=== PATIENT | male | born 1950 | race Caucasian/White ===

== ENCOUNTER 2020-08-25 17:20 | Observation (INO) ==
[2020-08-25] MEDS ORDERED: Naloxone 0.4 MG/ML INJ IVP PRN (18:09)
[2020-08-25] MEDS ORDERED: Ondansetron 4 MG/2 ML VIAL IVP PRN (18:09)
[2020-08-25 18:13] LABS: Acetaminophen < 10 mcg/mL (10-20); Salicylate < 2.5 mg/dL (15.0-30.0)
[2020-08-25] MEDS ORDERED: Melatonin 3 MG TABLET PO PRN (18:42)
[2020-08-25] MEDS ORDERED: Isosorbide MONOnitrate (24 HR) 30 MG TAB.ER.24H PO ONE (18:43)
[2020-08-25 21:00] LABS: Troponin I < 0.03 ng/mL (< 0.04)
[2020-08-25] MEDS: Budesonide/Formoterol 160/4.5 1 PUFF INH IH SCH (21:49)
[2020-08-26 01:09] LABS: Basophils # 0.1 K/mcL (0.0-0.2); Basophils % 0.7 %; Eosinophils # 0.2 K/mcL (0.0-0.6); Eosinophils % 3.2 %; Hematocrit 31.6 % (37.5-50.1); Hemoglobin 10.6 g/dL (12.9-16.9); Immature Granulocytes % 0.1 % (0-4); Lymphocytes # 1.8 K/mcL (0.6-4.6); Lymphocytes % 24.1 %; Mean Corpuscular HGB Conc 33.5 g/dL (31.6-35.5); Mean Corpuscular Hemoglobin 32.5 pg (28.0-33.3); Mean Corpuscular Volume 96.9 fL (83.0-100.0); Mean Platelet Volume 9.4 fL (9.4-12.4); Monocytes # 0.5 K/mcL (0.0-1.3); Monocytes % 6.8 %; Neutrophils # 4.8 K/mcL (1.6-8.9); Platelet Count 256 K/mcL (140-400); Red Blood Count 3.26 M/mcL (4.19-5.50); Red Cell Distribution Width 14.6 % (11.5-14.5); Segmented Neutrophils % 65.1 %; White Blood Count 7.4 K/mcL (4.3-11.1)
[2020-08-26 01:12] LABS: Prothrombin Time 11.1 Seconds (9.4-12.1)
[2020-08-26 01:32] LABS: Albumin 2.9 g/dL (3.5-5.7); Albumin/Globulin Ratio 1.1 (1.1-2.2); Bilirubin,Total 0.3 mg/dL (0.3-1.0); Calcium 8.1 mg/dL (8.6-10.3); Chol/HDL Ratio 2.9 (0-4.9); Globulin 2.7 g/dL (2.4-3.5); Magnesium 1.9 mg/dL (1.6-2.6); Phosphorous 3.2 mg/dL (2.7-4.5); Potassium 3.8 mEq/L (3.5-5.1); Total Protein 5.6 g/dL (6.4-8.9)
[2020-08-26 01:41] LABS: Thyroid Stimulating Hormone 18.856 mcIU/mL (0.340-5.600)
[2020-08-26 01:59] LABS: Estimated Average Glucose 134 mg/dl
[2020-08-26] MEDS: Budesonide/Formoterol 160/4.5 1 PUFF INH IH SCH (07:30)
[2020-08-26] MEDS ORDERED: Aspirin Enteric Coated 81 MG Tablet PO SCH (09:00)
[2020-08-26] MEDS ORDERED: Nicotine 21 MG PATCH.TD24 TD SCH ×2 (09:00→14:45)
[2020-08-26] MEDS ORDERED: Regadenoson 0.4 MG/5 ML SYRINGE IVP ONE (09:17)
[2020-08-26 09:55] LABS: Triiodothyronine (T3) Total 0.57 ng/mL (0.87-1.78)
[2020-08-26 10:25] LABS: Triiodothyronine (T3) Total 0.71 ng/mL (0.87-1.78)
[2020-08-26] MEDS ORDERED: amLODIPine 5 MG TABLET PO SCH (10:45)
[2020-08-26] MEDS ORDERED: Venlafaxine XR (24 HR) 75 MG CAP.ER.24H PO SCH (10:45)
[2020-08-26] MEDS ORDERED: allopurinoL 100 MG TABLET PO SCH (10:45)
[2020-08-26] MEDS ORDERED: Isosorbide MONOnitrate (24 HR) 30 MG TAB.ER.24H PO SCH (10:45)
[2020-08-26] MEDS ORDERED: ARIPiprazole 5 MG TABLET PO SCH (10:45)
[2020-08-26 15:33] LABS: Adenovirus Not Detected (Not Detect); Bordetella Pertussis Not Detected (Not Detect); Chlamydophila pneumoniae Not Detected (Not Detect); Coronavirus 229E Not Detected (Not Detect); Coronavirus HKU1 Not Detected (Not Detect); Coronavirus NL63 Not Detected (Not Detect); Coronavirus OC43 Not Detected (Not Detect); Human Metapneumovirus Not Detected (Not Detect); Human Rhinovirus/Enterovirus Not Detected (Not Detect); Influenza A Subtype 2009 H1 Not Detected (Not Detect); Influenza B Not Detected (Not Detect); Mycoplasma pneumoniae Not Detected (Not Detect); Parainfluenza Virus 1 Not Detected (Not Detect); Parainfluenza Virus 2 Not Detected (Not Detect); Parainfluenza Virus 3 Not Detected (Not Detect); Parainfluenza Virus 4 Not Detected (Not Detect); Respiratory Syncytial Virus Not Detected (Not Detect); SARS-CoV-2 Not Detected (Not Detect)
[2020-08-26 16:33] VITALS: BP 155/83
[2020-08-26] MEDS ORDERED: Mirtazapine 15 MG TABLET PO SCH (21:00)
== END 2020-08-26 18:25 ==
LOC: EMEROOARM 17:20 → 3BNU 17:20 → SUATTDRO 20:32 → 3BNU 21:01
PROVIDERS: ADMIT Internal Medicine; ATTEND Internal Medicine

== ENCOUNTER 2021-11-02 13:51 | Observation (INO) ==
[2021-11-02 14:32] LABS: Basophils % 0.3 %; Eosinophils # 0.1 K/mcL (0.0-0.6); Eosinophils % 0.7 %; Hematocrit 33.6 % (37.5-50.1); Hemoglobin 11.3 g/dL (12.9-16.9); Immature Granulocytes % 0.4 % (0-4); Lymphocytes # 1.1 K/mcL (0.6-4.6); Lymphocytes % 9.1 %; Mean Corpuscular HGB Conc 33.6 g/dL (31.6-35.5); Mean Corpuscular Hemoglobin 30.7 pg (28.0-33.3); Mean Corpuscular Volume 91.3 fL (83.0-100.0); Mean Platelet Volume 9.2 fL (9.4-12.4); Monocytes # 0.8 K/mcL (0.0-1.3); Monocytes % 6.2 %; Neutrophils # 10.1 K/mcL (1.6-8.9); Platelet Count 320 K/mcL (140-400); Red Blood Count 3.68 M/mcL (4.19-5.50); Red Cell Distribution Width 15.7 % (11.5-14.5); Segmented Neutrophils % 83.3 %; White Blood Count 12.2 K/mcL (4.3-11.1)
[2021-11-02 14:48] LABS: Calcium 8.8 mg/dL (8.6-10.3); Potassium 4.6 mEq/L (3.5-5.1); Prothrombin Time 11.5 Seconds (9.4-12.1)
[2021-11-02 14:58] LABS: Troponin I 0.04 ng/mL (< 0.04)
[2021-11-02] MEDS ORDERED: Albuterol 2.5 MG/3 ML NEBULIZER IH ONE (16:08)
[2021-11-02] MEDS ORDERED: Perflutren Lipid Microsphere 1.3 ML in 0.9 % Sodium Chloride 8.7 ML IVP PRN (16:43)
[2021-11-02] MEDS ORDERED: Ondansetron 4 MG/2 ML VIAL IVP PRN (16:44)
[2021-11-02] MEDS ORDERED: Naloxone 0.4 MG/ML INJ IVP PRN (16:44)
[2021-11-02] MEDS ORDERED: Melatonin 3 MG TABLET PO PRN (16:44)
[2021-11-02] MEDS: *HR* Heparin 5,000 UNIT/ML VIAL SQ SCH (18:28)
[2021-11-02 19:05] LABS: Adenovirus Not Detected (Not Detect); Bordetella Pertussis Not Detected (Not Detect); Chlamydophila pneumoniae Not Detected (Not Detect); Coronavirus 229E Not Detected (Not Detect); Coronavirus HKU1 Not Detected (Not Detect); Coronavirus NL63 Not Detected (Not Detect); Coronavirus OC43 Not Detected (Not Detect); Human Metapneumovirus Not Detected (Not Detect); Human Rhinovirus/Enterovirus Not Detected (Not Detect); Influenza A Subtype 2009 H1 Not Detected (Not Detect); Influenza B Not Detected (Not Detect); Mycoplasma pneumoniae Not Detected (Not Detect); Parainfluenza Virus 1 Not Detected (Not Detect); Parainfluenza Virus 2 Not Detected (Not Detect); Parainfluenza Virus 3 Not Detected (Not Detect); Parainfluenza Virus 4 Not Detected (Not Detect); Respiratory Syncytial Virus Not Detected (Not Detect); SARS-CoV-2 Not Detected (Not Detect)
[2021-11-02 20:00] LABS: Amphetamine Screen,Urine Negative ng/mL (Cutoff=1000); Barbiturate Screen,Urine Negative ng/mL (Cutoff=200); Benzodiazepines Screen,Urine Negative ng/mL (Cutoff=200); Cannabinoid Screen,Urine Positive ng/mL (Cutoff = 50); Cocaine Screen,Urine Negative ng/mL (Cutoff= 300); Opiate Screen,Urine Negative ng/mL (Cutoff=300); Phencyclidine Screen,Urine Negative ng/mL (Cutoff=25)
[2021-11-02] MEDS: Ipratropium/Albuterol Neb 3 ML IH PRN (20:45)
[2021-11-02] MEDS: Budesonide/Formoterol 160/4.5 1 PUFF INH IH SCH (20:45)
[2021-11-02] MEDS ORDERED: Morphine Sulfate 2 MG/ML SYRINGE IVP ONE (21:39)
[2021-11-03] MEDS: Morphine Sulfate 2 MG/ML SYRINGE IVP PRN ×4 (02:10→17:17)
[2021-11-03 02:48] LABS: Basophils % 0.3 %; Eosinophils # 0.1 K/mcL (0.0-0.6); Eosinophils % 0.7 %; Hematocrit 33.3 % (37.5-50.1); Hemoglobin 11.2 g/dL (12.9-16.9); Immature Granulocytes % 0.3 % (0-4); Lymphocytes # 1.1 K/mcL (0.6-4.6); Lymphocytes % 10.4 %; Mean Corpuscular HGB Conc 33.6 g/dL (31.6-35.5); Mean Corpuscular Hemoglobin 30.9 pg (28.0-33.3); Mean Platelet Volume 9.5 fL (9.4-12.4); Monocytes # 0.8 K/mcL (0.0-1.3); Monocytes % 7.1 %; Neutrophils # 8.7 K/mcL (1.6-8.9); Platelet Count 294 K/mcL (140-400); Red Blood Count 3.62 M/mcL (4.19-5.50); Red Cell Distribution Width 15.6 % (11.5-14.5); Segmented Neutrophils % 81.2 %; White Blood Count 10.7 K/mcL (4.3-11.1)
[2021-11-03 03:06] LABS: BUN/Creatinine Ratio 25 (6-26); Blood Urea Nitrogen 33 mg/dL (8-23); Calcium 8.8 mg/dL (8.6-10.3); Carbon Dioxide 24 mEq/L (23-29); Chloride 101 mEq/L (98-107); Chol/HDL Ratio 2.4 (0-4.9); Cholesterol 111 mg/dL (< 200); Glucose 114 mg/dL (70-105); HDL Cholesterol 47 mg/dL (40-59); LDL Cholesterol,Calculated 49 mg/dL (< 100); Magnesium 1.9 mg/dL (1.6-2.6); Osmolality,Calculated 280 (280-300); Potassium 4.3 mEq/L (3.5-5.1); Sodium 131 mEq/L (136-145); Triglycerides 75 mg/dL (< 150); eGFR For African Americans > 60 (> 60); eGFR For Non-African Americans 53 (> 60)
[2021-11-03 03:18] LABS: Estimated Average Glucose 143 mg/dl; Hemoglobin A1C 6.6 %
[2021-11-03] MEDS ORDERED: Nitroglycerin 0.4 MG TAB.SUBL SL ONE (03:25)
[2021-11-03] MEDS: *HR* Heparin 5,000 UNIT/ML VIAL SQ SCH ×2 (06:08→16:51)
[2021-11-03] MEDS: Aspirin Enteric Coated 81 MG Tablet PO SCH (09:47)
[2021-11-03] MEDS ORDERED: Isovue-370 500 ML BOTTLE IVP ONE (09:56)
[2021-11-03] MEDS: Budesonide/Formoterol 160/4.5 1 PUFF INH IH SCH ×2 (09:58→20:05)
[2021-11-03] MEDS ORDERED: 0.9 % Sodium Chloride 1,000 ML IVC SCH (10:00)
[2021-11-03] MEDS ORDERED: clonazePAM 0.5 MG TABLET PO PRN (10:05)
[2021-11-03] MEDS: cefTRIAXone 1,000 MG in Water for inj. (sterile) 10 ML IVP SCH (15:46)
[2021-11-03] MEDS: Azithromycin 250 MG TABLET PO SCH (15:46)
[2021-11-03] MEDS: Ipratropium/Albuterol Neb 3 ML IH PRN (20:05)
[2021-11-03] MEDS: Melatonin 3 MG TABLET PO SCH (20:12)
[2021-11-03] MEDS: Sacubitril/Valsartan 24/26 MG 1 TABLET PO SCH (20:12)
[2021-11-03] MEDS: Mirtazapine 15 MG TABLET PO SCH (20:13)
[2021-11-03] MEDS ORDERED: NON-FORMULARY MEDICATION 1 EACH EACH (Fluticasone Propion/Salmeterol [Fluticasone-Salmeter IH SCH (21:00)
[2021-11-04] MEDS: *HR* Heparin 5,000 UNIT/ML VIAL SQ SCH ×2 (05:33→16:26)
[2021-11-04] MEDS: cefTRIAXone 1,000 MG in Water for inj. (sterile) 10 ML IVP SCH (09:27)
[2021-11-04] MEDS: ARIPiprazole 5 MG TABLET PO SCH (09:28)
[2021-11-04] MEDS: Azithromycin 250 MG TABLET PO SCH (09:28)
[2021-11-04] MEDS: Isosorbide MONOnitrate (24 HR) 60 MG TAB.ER.24H PO SCH (09:28)
[2021-11-04] MEDS: Aspirin Enteric Coated 81 MG Tablet PO SCH (09:28)
[2021-11-04] MEDS: allopurinoL 300 MG TABLET PO SCH (09:28)
[2021-11-04] MEDS: Venlafaxine XR (24 HR) 150 MG CAP.ER.24H PO SCH (09:28)
[2021-11-04] MEDS: Sacubitril/Valsartan 24/26 MG 1 TABLET PO SCH ×2 (09:29→20:36)
[2021-11-04] MEDS: Tiotropium 10 INH DOSE IH SCH (11:31)
[2021-11-04] MEDS: Budesonide/Formoterol 160/4.5 1 PUFF INH IH SCH ×2 (11:31→20:00)
[2021-11-04] MEDS: Ipratropium/Albuterol Neb 3 ML IH PRN ×2 (12:25→20:00)
[2021-11-04] MEDS ORDERED: *HR* OxyCODONE/APAP 5/325 TABLET PO ONE (13:43)
[2021-11-04 14:10] LABS: Bilirubin,Urine Negative (Negative); Blood,Urine Moderate (Negative); Clarity,Urine Clear (Clear); Color,Urine Light-Yellow (Yellow); Glucose,Urine (UA) Normal (Normal); Ketones,Urine 10 mg/dL (Negative); Leukocyte Esterase,Urine Negative (Negative); Nitrite,Urine Negative (Negative); Protein,Urine 200 mg/dL (Neg-Trace); Specific Gravity,Urine 1.023 (1.010-1.025); Urobilinogen,Urine Normal (Normal); WBC,Urine 0-3 per hpf (0-3)
[2021-11-04] MEDS: Mirtazapine 15 MG TABLET PO SCH (20:37)
[2021-11-04] MEDS: Melatonin 3 MG TABLET PO SCH (20:37)
[2021-11-04 20:45] LABS: Adenovirus Not Detected (Not Detect); Bordetella Pertussis Not Detected (Not Detect); Chlamydophila pneumoniae Not Detected (Not Detect); Coronavirus 229E Not Detected (Not Detect); Coronavirus HKU1 Not Detected (Not Detect); Coronavirus NL63 Not Detected (Not Detect); Coronavirus OC43 Not Detected (Not Detect); Human Metapneumovirus Not Detected (Not Detect); Human Rhinovirus/Enterovirus Not Detected (Not Detect); Influenza A Subtype 2009 H1 Not Detected (Not Detect); Influenza B Not Detected (Not Detect); Mycoplasma pneumoniae Not Detected (Not Detect); Parainfluenza Virus 1 Not Detected (Not Detect); Parainfluenza Virus 2 Not Detected (Not Detect); Parainfluenza Virus 3 Not Detected (Not Detect); Parainfluenza Virus 4 Not Detected (Not Detect); Respiratory Syncytial Virus Not Detected (Not Detect); SARS-CoV-2 Not Detected (Not Detect)
[2021-11-04] MEDS ORDERED: *HR* Heparin 5,000 UNIT/ML VIAL IVP PRN ×2 (23:29)
[2021-11-04] MEDS ORDERED: Heparin 25,000 UNIT/250 ML 25,000 UNIT/250 ML IV.SOLN IVC SCH (23:30)
[2021-11-05 00:50] LABS: Hemoglobin 11.2 g/dL (12.9-16.9); Mean Corpuscular HGB Conc 33.9 g/dL (31.6-35.5); Mean Corpuscular Hemoglobin 30.5 pg (28.0-33.3); Mean Corpuscular Volume 89.9 fL (83.0-100.0); Mean Platelet Volume 9.3 fL (9.4-12.4); Platelet Count 296 K/mcL (140-400); Red Blood Count 3.67 M/mcL (4.19-5.50); Red Cell Distribution Width 15.2 % (11.5-14.5)
[2021-11-05 00:53] LABS: Heparin anti-factor XA UFH < 0.04 IU/mL (0.30-0.70)
[2021-11-05 00:54] LABS: INR 0.9; Prothrombin Time 10.3 Seconds (9.4-12.1)
[2021-11-05] MEDS: Morphine Sulfate 2 MG/ML SYRINGE IVP PRN ×3 (02:35→19:42)
[2021-11-05] MEDS: Venlafaxine XR (24 HR) 150 MG CAP.ER.24H PO SCH (09:16)
[2021-11-05] MEDS: ARIPiprazole 5 MG TABLET PO SCH (09:16)
[2021-11-05] MEDS: Isosorbide MONOnitrate (24 HR) 60 MG TAB.ER.24H PO SCH (09:16)
[2021-11-05] MEDS: Azithromycin 250 MG TABLET PO SCH ×2 (09:16→09:36)
[2021-11-05] MEDS: Aspirin Enteric Coated 81 MG Tablet PO SCH (09:16)
[2021-11-05] MEDS: Sacubitril/Valsartan 24/26 MG 1 TABLET PO SCH ×2 (09:16→19:31)
[2021-11-05] MEDS: allopurinoL 300 MG TABLET PO SCH (09:16)
[2021-11-05] MEDS: Budesonide/Formoterol 160/4.5 1 PUFF INH IH SCH ×2 (09:27→19:54)
[2021-11-05] MEDS: Tiotropium 10 INH DOSE IH SCH (09:27)
[2021-11-05] MEDS: Apixaban 5 MG TABLET PO SCH ×2 (14:44→19:31)
[2021-11-05] MEDS: Ipratropium/Albuterol Neb 3 ML IH PRN (14:49)
[2021-11-05] MEDS: Amoxicillin/Clavulanate 500 MG TABLET PO SCH (16:26)
[2021-11-05 18:56] LABS: Alanine Aminotransferase 12 Units/L (7-52); Albumin 3.3 g/dL (3.5-5.7); Albumin/Globulin Ratio 1.1 (1.1-2.2); Alkaline Phosphatase 66 Units/L (34-104); Aspartate Amino Transferase 14 Units/L (13-39); BUN/Creatinine Ratio 26 (6-26); Bilirubin,Total 0.3 mg/dL (0.3-1.0); Blood Urea Nitrogen 33 mg/dL (8-23); Calcium 8.8 mg/dL (8.6-10.3); Carbon Dioxide 28 mEq/L (23-29); Chloride 100 mEq/L (98-107); Glucose 122 mg/dL (70-105); Magnesium 1.7 mg/dL (1.6-2.6); Osmolality,Calculated 285 (280-300); Phosphorous 3.3 mg/dL (2.7-4.5); Potassium 4.5 mEq/L (3.5-5.1); Sodium 133 mEq/L (136-145); Total Protein 6.3 g/dL (6.4-8.9); eGFR For African Americans > 60 (> 60); eGFR For Non-African Americans 55 (> 60)
[2021-11-05] MEDS: Melatonin 3 MG TABLET PO SCH (19:31)
[2021-11-05] MEDS: Mirtazapine 15 MG TABLET PO SCH (19:31)
[2021-11-06 03:03] VITALS: BP 139/84; PULSE 61; TEMP 97.9; O2SAT 96
[2021-11-06] MEDS: Morphine Sulfate 2 MG/ML SYRINGE IVP PRN ×2 (03:07→08:52)
[2021-11-06] MEDS: ARIPiprazole 5 MG TABLET PO SCH (08:36)
[2021-11-06] MEDS: Venlafaxine XR (24 HR) 150 MG CAP.ER.24H PO SCH (08:36)
[2021-11-06] MEDS: Azithromycin 250 MG TABLET PO SCH (08:36)
[2021-11-06] MEDS: Aspirin Enteric Coated 81 MG Tablet PO SCH (08:36)
[2021-11-06] MEDS: Amoxicillin/Clavulanate 500 MG TABLET PO SCH (08:36)
[2021-11-06] MEDS: Isosorbide MONOnitrate (24 HR) 60 MG TAB.ER.24H PO SCH (08:37)
[2021-11-06] MEDS: Apixaban 5 MG TABLET PO SCH (08:37)
[2021-11-06] MEDS: allopurinoL 300 MG TABLET PO SCH (08:37)
[2021-11-06] MEDS: Sacubitril/Valsartan 24/26 MG 1 TABLET PO SCH (08:37)
== END 2021-11-06 10:59 | disposition home or self-care (01) ==
LOC: 3BNU 13:51 → EMEROOARM 13:51 → 3BNU 17:47
PROVIDERS: ADMIT Hospitalist; ATTEND Hospitalist